=== PATIENT | female | born 1980 | race Caucasian/White ===

== ENCOUNTER → 2018-02-20 09:11 | Outpatient (CLI) | payer OTHER, MEDICAID, SELFPAY ==
--- NOTE | 2018-02-20 09:13 | DI.MRI.S_ITS ---
PROCEDURE: MR HEAD/BRAIN WO CON INDICATIONS: New daily worsening headache TECHNIQUE: Noncontrast axial T1 spin echo, axial T2 fast spin echo, sagittal and axial FLAIR, coronal T2 fast spin echo, axial gradient echo, axial diffusion and ADC through the brain. COMPARISON: None. FINDINGS: Image quality: Excellent. CSF Spaces: Basal cisterns are patent. No extra-axial fluid collections. Ventricles are normal in size and shape. Brain: No intracranial masses or hemorrhage. Da Silva/white matter interface is normal. Brainstem appears normal. Diffusion-weighted images demonstrate no acute ischemic insult. No chronic ischemic insults. Normal intravascular flow voids are present. Skull and face: Calvarium has normal marrow signal. Orbits appear normal. Prominent (and not pathologically enlarged) bilateral cervical lymph nodes can be seen. These are not regarded to be pathologic in a patient of this age. Sinuses: There is subtotal opacification seen of the maxillary sinuses. Mild to moderate mucosal thickening can be seen elsewhere within the paranasal sinuses. The frontal sinuses are poorly developed. IMPRESSION: No intracranial abnormality can be seen to explain the patient's presenting history of new daily worsening headaches. However, note is made of relatively prominent paranasal sinus disease, with subtotal opacification of the maxillary sinuses. Dictated by: Felix Bhagat M.D. on 02/20/2018 at 9:08 Approved by: Felix Bhagat M.D. on 02/20/2018 at 9:12
== END ==
PROVIDERS: PCP Ophthalmology; Visit Provider Specialist
DX: G44.52 New daily persistent headache (NDPH) (principal); R41.89 Other symptoms and signs involving cognitive functions and awareness
CPT/HCPCS: 70551